=== PATIENT | male | born 1950 | race Two or more races ===

== ENCOUNTER 2022-11-22 12:17 | Emergency (ER) | payer OTHER ==
[~2022-11-22] VITALS: Ht 162.6 cm; Wt 69.4 kg
[~2022-11-22 12:17] MED LIST: AMOX1TAB5 PO
[2022-11-22] MEDS ORDERED: TENORMIN50 M1 PO (13:19)
== END 2022-11-22 13:51 | disposition home or self-care (01) ==
LOC: ER 12:17
DX: L02.423 Furuncle of right upper limb (principal); S50.861A Insect bite (nonvenomous) of right forearm, initial encounter; W57.XXXA Bitten or stung by nonvenomous insect and other nonvenomous arthropods, initial encounter; Y93.89 Activity, other specified; Y92.89 Other specified places as the place of occurrence of the external cause
CPT/HCPCS: 96372; 99284; J0690

== ENCOUNTER 2024-11-24 22:31 | Emergency (ER) | payer OTHER ==
[~2024-11-24] VITALS: Ht 167.6 cm; Wt 65.8 kg
[~2024-11-24 22:31] MED LIST changes: +TENORMIN50 M1 PO
[2024-11-24] MEDS ORDERED: TENORMIN50 M1 PO (22:51)
[2024-11-25 01:11] LABS: BASO % 0.3 % (0.1-1.2); EOS # 0.03 (0.04-0.54); EOS % 0.2 % (0.7-7.0); LYMPH # 0.58 (1.18-3.74); LYMPH % 4.0 % (19.3-53.1); MEAN PLATELET VOLUME 9.60 fl (9.4-12.4); MONO # 0.65 (0.24-0.82); MONO % 4.5 % (4.7-12.5); NEUT # 13.12 (1.56-6.13); NEUT % 90.4 % (34.0-71.1); RED CELL DISTRIBUTION WIDTH 13.4 % (11.6-14.4)
[2024-11-25 01:27] LABS: BUN CREA RATIO 8.0 (7.0-25.0); CREATININE SERUM 1.12 mg/dL (0.70-1.30); GFR 64.09; GLUCOSE FASTING 129.0 mg/dL (65-100); OSMOLALITY SERUM 282.0 MOSM/KG (275-295)
== END 2024-11-25 02:58 ==
LOC: ER 22:31
PROVIDERS: General Practice
DX: E86.0 Dehydration (principal); R53.1 Weakness; I95.9 Hypotension, unspecified; I10 Essential (primary) hypertension